=== PATIENT | female | born 1955 | race American Indian/Alaskan Native ===

== ENCOUNTER 2021-05-30 11:38 | Outpatient (CLI) | payer OTHER ==
--- NOTE | 2021-05-30 14:47 | XRay Report ---
LUMBAR SPINE 3 VIEWS INDICATION: PAIN IN LOWER BACK COMPARISON: None. FINDINGS: There is no fracture, subluxation, or other acute radiographic abnormality of the lumbar spine. There is discogenic degenerative change L5-S1. There is mild disc space narrowing at L4-5. There is facet degenerative change at L4-5 and L5-S1. 1. Signer Name: Yo Collins MD Signed: 05/30/2021 2:42 PM Workstation Name: [id number]
== END 2021-05-30 11:39 | disposition home or self-care (01) ==
LOC: XRAY 11:38
PROVIDERS: ATTEND Internal Medicine
DX: M47.817 Spondylosis without myelopathy or radiculopathy, lumbosacral region (principal)
CPT/HCPCS: 72110